=== PATIENT | male | born 1980 | race Caucasian/White ===

== ENCOUNTER 2017-04-20 10:44 | Emergency (ER) | payer SELFPAY ==
[2017-04-20 10:52] VITALS: RESP 20; TEMP 97.5; O2SAT 97
[2017-04-20] MEDS ORDERED: TDAP VACCINE 0.5 ML SUS IM ONE ×2 (11:09→11:17)
[2017-04-20 11:46] VITALS: BP 132/75; PULSE 57
== END 2017-04-20 11:20 | disposition home or self-care (01) | DRG 605 ==
LOC: ED 10:44
DX: S01.01XA Laceration without foreign body of scalp, initial encounter (principal); W45.8XXA Other foreign body or object entering through skin, initial encounter
CPT/HCPCS: 12002; 90471; 90715; 99283; G0168; A6402